=== PATIENT | female | born 2000 | race Caucasian/White ===

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

== ENCOUNTER 2020-01-22 08:23 | Emergency (ER) | payer OTHER, SELFPAY ==
[2020-01-22 08:24] VITALS: BP 126/89; PULSE 124; RESP 16; O2SAT 96
[2020-01-22 08:31] VITALS: BP 126/89; PULSE 124; RESP 17; TEMP 38.2; O2SAT 98; BMI 18.9
--- NOTE | 2020-01-22 08:44 | HMH.EDFEV ---
ED Disposition Clinical Impression: Infected dental carries Disposition: Home, Self-Care Condition on Discharge: Fair Instructions: DI for Tooth Abscess Prescriptions: clindamycin HCL [Cleocin HCl] 450 mg PO TID #63 cap Prescription Printed Hydrocodone/Acetaminophen [[place] 5-325 Tablet] 1 each PO Q6 #7 tab Prescription Printed Referrals: Italo Taylor MD [Primary Care Provider] - Emergency [facility] [Other] Time of Disposition: 09:05 - Critical Care Critical Care Time: No Attestation: On 01/22/20, the high probability of a clinically significant, sudden or life threatening deterioration of the following system(s) required my full and direct attention, intervention and personal management. The time I documented below is in addition to time spent performing reported procedures but includes the following listed in this critical care notation. Medical Decision Making - Medical Records Medical records reviewed: Yes: I reviewed the patient's medical records. - Lucio Inquiry Pt receiving controlled substance: No Vital Signs: 01/22/20 08:31 Temperature 100.7 F H Temperature Source Oral Pulse Rate [Right Radial] 124 H Respiratory Rate 17 Blood Pressure [Right Arm] 126/89 Blood Pressure Mean [Right Arm] 101 02 Sat by Pulse Oximetry 98 Oxygen Delivery Method Room Air Orders (Tests/Meds): ED MEDICATIONS Generic Name Dose Route Start Last Admin Trade Name Freq PRN Reason Stop Dose Admin Sodium Chloride 1,000 mls @ 999 mls/hr 01/22/20 08:45 01/22/20 08:54 Sod Chlor 0.9% 1000ml Bag IV 01/22/20 09:45 999 mls/hr .Q1H1M EDU Administration Discontinued Medications Generic Name Dose Route Start Last Admin Trade Name Freq PRN Reason Stop Dose Admin Ketorolac Tromethamine 30 mg 01/22/20 08:42 01/22/20 08:53 Toradol 30mg/Ml Vial IV 01/22/20 08:43 30 mg ONCE ONE Administration - Reevaluation(s) Time: 08:55 Reevaluation #1: On reevaluation, patient is feeling better. I did give her instructions for the emergency dental clinic. Patient will require extraction. Patient discharged on short course antibiotics. Given strict return precautions. Verbalized understanding. Medical Decision Narrative: 19-year-old female presented to the emergency department with fevers, chills and dental pain. Patient is not evidence of infected dental caries on examination. Patient is low-grade fever in the emergency department. Denies any other symptoms. Patient will be provided analgesics and antipyretics. I did explain to the patient that she needs dental extraction. Fever HPI - General Chief Complaint: Fever Stated Complaint: fever 102 Time Seen by Provider: 01/22/20 08:44 Mode of Arrival: Ambulatory Limitations: No Limitations Description of Symptoms (Recalled from ER Triage Doc. by RN): pt presents to ed with c/o fever up to 102. pt also c/o toothache. pt states that she thinks her fever is coming from her teeth. - History of Present Illness HPI Narrative: 19-year-old female presented to the emergency department with dental pain, fevers and chills. The patient states that since early this morning, she has been having some swelling and discomfort in her right lower jaw. Patient has a history of infected dental caries. She is supposed to be seeing a dentist for extraction, however she has been unable to. Is been complaining of pain in the right lower molar. She is also had some mild discharge. Patient states that she did take some Tylenol in the middle the night, however her fever is not improved. She denies any headache, change in vision, neck pain or focal weakness. She is not having any chest pain, shortness of breath or cough. No abdominal pain, vomiting, no diarrhea or blood in the stool. Denies any other symptoms. - Related Data Previous Rx's Medication Instructions Recorded buspirone 5 mg tablet 5 mg PO TID #90 tab 11/17/19 paroxetine HCl 10 mg table
[2020-01-22 08:54] VITALS: BP 125/77; PULSE 87; RESP 16; TEMP 37.8; O2SAT 97
[2020-01-22 09:24] VITALS: BP 118/73; PULSE 104; RESP 18; O2SAT 99
[2020-01-22 09:30] VITALS: BP 118/73; PULSE 104; RESP 16; O2SAT 99
[2020-01-22 09:44] VITALS: BP 118/74; PULSE 100; RESP 14; TEMP 37.8; O2SAT 99
== END 2020-01-22 09:45 | disposition home or self-care (01) ==
PROVIDERS: Emergency Provider Emergency Medicine; PCP Emergency Medicine
DX: K02.9 Dental caries, unspecified (principal); K50.90 Crohn's disease, unspecified, without complications; F41.9 Anxiety disorder, unspecified; F17.210 Nicotine dependence, cigarettes, uncomplicated; Z90.09 Acquired absence of other part of head and neck
CPT/HCPCS: 96365; 96375; 99283

== ENCOUNTER 2020-09-20 14:09 | Emergency (ER) | payer OTHER, SELFPAY ==
--- NOTE | 2020-09-20 14:12 | HMH.EDGENADL ---
ED Disposition Referrals: Italo Taylor MD [Primary Care Provider] - Attestation: On , the high probability of a clinically significant, sudden or life threatening deterioration of the following system(s) required my full and direct attention, intervention and personal management. The time I documented below is in addition to time spent performing reported procedures but includes the following listed in this critical care notation. General Adult HPI - General Stated complaint: vomiting blood, [place] - Related Data Previous Rx's Medication Instructions Recorded clindamycin HCl 300 mg capsule 300 mg PO Q8H 10 Days #30 cap 03/23/20 Allergies Allergy/AdvReac Type Severity Reaction Status Date / Time amoxicillin Allergy Unknown Verified 03/23/20 14:30 allergy reaction Penicillins Allergy Unknown Verified 03/23/20 14:30 allergy reaction [facility] History - Hepatitis A Screen Attestation statement:: This patient has been screened for Hepatitis A risk factors. Medical History: Denies:: Cancer, Diabetes Mellitus Type 1, Diabetes Mellitus Type 2, MRSA Other Medical History: Reports: Other Comment: Chrohn's disease Laterality Cases: Bilateral: Tonsillectomy Other Surgeries: Yes: Other Amputation: No Fractures: No Comment: 2008-Tonsillectomy. 2017- colonoscopy and endoscopy - Social History Smoking Status: Current every day smoker Tobacco Type: cigarettes # Packs/Day (cigarettes): 1 Alcohol Intake: never Alcohol Intake Frequency:: holidays/special occasions only Substance Use Type: marijuana Occupational Status: unemployed Household Members: family Family Hx:: Hypertension
--- NOTE | 2020-09-20 15:19 | PC.NURSE ---
called registration to assign pt to a room, registration staff informs us pt has left. notified ROSE ARCE
[2020-09-20 15:20] VITALS: BP 0/0; PULSE 0; RESP 0; TEMP -17.7; TEMP 0; O2SAT 0
== END 2020-09-20 15:20 | disposition left against medical advice (07) ==
LOC: ER 15:15
PROVIDERS: Emergency Provider Emergency Medicine; PCP Emergency Medicine
DX: Z53.21 Procedure and treatment not carried out due to patient leaving prior to being seen by health care provider (principal)
CPT/HCPCS: 99211

== ENCOUNTER 2020-11-13 16:39 | Emergency (ER) | payer OTHER, SELFPAY ==
[2020-11-13 16:39] VITALS: BP 108/70; PULSE 92; RESP 18; TEMP 36.7; O2SAT 97; BMI 22.1
--- NOTE | 2020-11-13 16:59 | XR_ITS ---
PROCEDURE INFORMATION: Exam: XR Chest Exam date and time: 11/13/2020 4:59 PM Age: 19 years old Clinical indication: Sternal or substernal pain; Patient HX: Chest pain TECHNIQUE: Imaging protocol: XR of the chest. Views: 2 views. COMPARISON: No relevant prior studies available. FINDINGS: Airway: The airways are patent. Lungs: Subtle bilateral and symmetric hazy opacifications in the lung bases are most compatible with superimposition of soft tissues, most likely breast tissue. These opacifications are not visualized on the lateral view. The lungs are otherwise clear. Pleural spaces: There are no pleural effusions present. There is no evidence of pneumothorax. Heart/Mediastinum: Heart is of normal size and morphology. Bones/joints: No acute skeletal abnormality or aggressive osseous lesion. IMPRESSION: Negative for acute thoracic pathology.
[2020-11-13 17:08] LABS: Basophils % 0.5 % (0.1-2.0); Eosinophils # 0.1 K/mm3 (0.0-0.4); Eosinophils % 1.1 % (0.1-12.0); Hematocrit 44.4 % (37.0-47.0); Hemoglobin 14.7 g/dL (12.2-16.2); Lymphocytes # 2.6 K/mm3 (0.7-4.5); Lymphocytes % 31.8 % (10-50); Mean Corpuscular HGB Conc 33.2 g/dL (31.8-35.4); Mean Corpuscular Hemoglobin 31.6 pg (27.0-31.2); Mean Corpuscular Volume 95.2 fl (81-99); Mean Platelet Volume 6.6 fl (7.4-10.4); Monocytes # 0.3 K/mm3 (0.1-1.0); Monocytes % 3.8 % (1.7-9.3); Neutrophils # 5.1 K/mm3 (1.8-7.8); Neutrophils % 62.7 % (37.0-80.0); Platelet Count 314 K/mm3 (142-424); Red Blood Count 4.67 M/mm3 (4.20-5.40); Red Cell Distribution Width 12.8 % (11.5-17.5); White Blood Count 8.2 K/mm3 (4.5-13.0)
[2020-11-13 17:10] LABS: Chloride 104 mmol/L (98-107); Potassium 3.7 mmoL/L (3.5-5.1); Sodium 139 mmol/L (136-145)
--- NOTE | 2020-11-13 17:11 | HMH.EDOD ---
ED Disposition Clinical Impression: Drug overdose Qualifiers: Encounter type: initial encounter Injury intent: accidental or unintentional Qualified Code(s): T50.901A - Poisoning by unspecified drugs, medicaments and biological substances, accidental (unintentional), initial encounter Disposition: Home, Self-Care Condition on Discharge: Good Instructions: DI for Drug Overdose in Adults Referrals: Provider,Referral, [Referring] - - Critical Care Critical Care Time: No Attestation: On 11/13/20, the high probability of a clinically significant, sudden or life threatening deterioration of the following system(s) required my full and direct attention, intervention and personal management. The time I documented below is in addition to time spent performing reported procedures but includes the following listed in this critical care notation. Medical Decision Making - Medical Records Medical records reviewed: Yes: I reviewed the patient's medical records. - Lucio Inquiry Pt receiving controlled substance: No Vital Signs: 11/13/20 16:39 Temperature 98.0 F Temperature Source Oral Pulse Rate [Right] 92 H Respiratory Rate 18 Blood Pressure [Right Arm] 108/70 L Blood Pressure Mean [Right Arm] 82 02 Sat by Pulse Oximetry 97 Oxygen Delivery Method Room Air - Lab Data Lab Results 11/13/20 16:49: WBC 8.2, RBC 4.67, Hgb 14.7, Hct 44.4, MCV 95.2, MCH 31.6 H, MCHC 33.2, RDW 12.8, Plt Count 314, MPV 6.6 L, Neut % (Auto) 62.7, Lymph % (Auto) 31.8, [place] % (Auto) 3.8, Eos % (Auto) 1.1, Baso % (Auto) 0.5, Neut # (Auto) 5.1, Lymph # (Auto) 2.6, [place] # (Auto) 0.3, Eos # (Auto) 0.1, Baso # (Auto) 0.0 11/13/20 16:49: Sodium 139, Potassium 3.7, Chloride 104, Carbon Dioxide 25, Anion Gap 13.7, BUN 7, Creatinine 0.60, Estimated Creat Clear 134, Estimated GFR 127, Est GFR ( Amer) 154, Glucose 210 H, Calcium 8.9, Total Bilirubin 0.7, AST 135 H, ALT 104 H, Alkaline Phosphatase 74, Troponin I < 0.01, Total Protein 7.9, Albumin 4.7, Globulin 3.2, Albumin/Globulin Ratio 1.5 Result diagrams: 11/13/20 16:49 11/13/20 16:49 Orders (Tests/Meds): ED MEDICATIONS Generic Name Dose Route Start Last Admin Trade Name Freq PRN Reason Stop Dose Admin Sodium Chloride 1,000 mls @ 999 mls/hr 11/13/20 17:00 11/13/20 17:15 Sod Chlor 0.9% 1000ml Bag IV 11/13/20 18:00 999 mls/hr .Q1H1M EDU Administration Discontinued Medications Generic Name Dose Route Start Last Admin Trade Name Freq PRN Reason Stop Dose Admin Ondansetron HCl 4 mg 11/13/20 16:59 11/13/20 17:07 Ondansetron 4mg/2ml Vial IV 11/13/20 17:00 4 mg ONCE ONE Administration ORDERS Category Date Time Status XR chest 2V Stat Exams 11/13/20 16:59 Taken Troponin I Q3H Lab 11/13/20 20:00 Ordered Troponin I Q3H Lab 11/13/20 23:00 Ordered - Radiology Data #1 Image(s): Chest Image Reviewed: Yes I reviewed the patient's radiology results, Yes I reviewed the patient's radiology image Preliminary Findings: Normal/NAD - Reevaluation(s) Time: 17:50 Reevaluation #1: On reevaluation, patient is feeling better. She is alert and appropriate. I did offer rehabilitation services, however patient is declining at this time. She will be discharged on the care of her friend. Patient was given strict return precautions. Verbalized understanding. Medical Decision Narrative: 19-year-old female presenting after opiate overdose. Patient is alert and appropriate at this time. Complaining of some chest discomfort. Likely secondary to CPR that was started by the boyfriend. Work-up initiated. Overdose HPI - General Chief Complaint: Overdose Stated Complaint: Overdose Time Seen by Provider: 11/13/20 16:45 Mode of Arrival: EMS Limitations: No Limitations Description of Symptoms (Recalled from ER Triage Doc. by RN): EMS REPORTS THEY WERE CALLED OUT FOR AN UNRESPONSIVE PATIENT WITH POSSIBLE OVERDOSE. EMS REPORTS UPON ARRIVAL, PATIENT WAS UNRESPO
[2020-11-13 17:13] LABS: Alanine Aminotransferase 104 U/L (12-78); Albumin Level 4.7 g/dl (3.5-5.0); Albumin/Globulin Ratio 1.5 (1.1-1.8); Alkaline Phosphatase 74 U/L (38-126); Anion Gap 13.7 mEq/L (5-15); Aspartate Amino Transferase 135 U/L (14-36); Bilirubin,Total 0.7 mg/dl (0.2-1.3); Blood Urea Nitrogen 7 mg/dl (7-17); Carbon Dioxide 25 mmol/L (22.0-30.0); Creatinine Clearance Estimated 134 mL/min (50-200); Estimated Glomerular Filt Rate 127 ml/min (>60); GFR (African American) 154 ML/MIN (>60); Globulin 3.2 g/dL (1.3-3.2); Total Protein,Serum 7.9 g/dl (6.3-8.2)
[2020-11-13 17:14] LABS: Calcium 8.9 mg/dl (8.4-10.2); Glucose 210 mg/dl (74-100)
[2020-11-13 17:25] LABS: Troponin I < 0.01 ng/ml (0.00-0.034)
[2020-11-13 17:30] VITALS: BP 102/62; PULSE 95; O2SAT 95
[2020-11-13 18:00] VITALS: BP 106/63; PULSE 73; PULSE 86; RESP 16; TEMP 36.7; O2SAT 97; O2SAT 98
--- NOTE | 2020-11-13 18:03 | PC.NURSE ---
CALLED PATIENT BOYFRIENDETHEL PER PATIENT REQUEST. ETHEL STATED HE WAS ON HIS WAY TO PICK PATIENT UP. PATIENT WILL REMIAN IN ER BED UNTIL RIDE ARRIVES
== END 2020-11-13 18:19 | disposition home or self-care (01) ==
PROVIDERS: Emergency Provider Emergency Medicine; PCP Emergency Medicine
DX: T40.1X1A Poisoning by heroin, accidental (unintentional), initial encounter (principal); Y92.019 Unspecified place in single-family (private) house as the place of occurrence of the external cause; F17.210 Nicotine dependence, cigarettes, uncomplicated; Z88.0 Allergy status to penicillin
CPT/HCPCS: 71046; 80053; 84484; 85025; 96365; 99282; J2405

== ENCOUNTER 2021-07-06 11:07 | Emergency (ER) | payer OTHER, SELFPAY ==
[2021-07-06 11:11] VITALS: BP 124/76; PULSE 84; RESP 16; TEMP 36.4; O2SAT 98; BMI 23.9
--- NOTE | 2021-07-06 11:46 | HMH.EDGENADL ---
ED Disposition Clinical Impression: Infected dental caries Disposition: Home, Self-Care Condition on Discharge: Good Instructions: DI for Dental Pain, DI for Tooth Decay, DI for Tooth Abscess Additional Instructions: Clindamycin as prescribed. Toradol as needed for pain. Additional instructions for DENTAL PROBLEMS: See a dentist as soon as possible for further evaluation. Return immediately if you have an uncontrollable fever greater than 102 degrees, difficulty breathing or shortness of breath, persistent vomiting, or inability to swallow. Prescriptions: Ketorolac Tromethamine [Toradol 10mg tablet] 10 mg PO Q6HP PRN #10 tablet PRN Reason: Moderate Pain clindamycin HCL [Clindamycin HCl] 300 mg PO QID #28 capsule Referrals: Italo Taylor MD [Primary Care Provider] - - Critical Care Critical Care Time: No Attestation: On 07/06/21, the high probability of a clinically significant, sudden or life threatening deterioration of the following system(s) required my full and direct attention, intervention and personal management. The time I documented below is in addition to time spent performing reported procedures but includes the following listed in this critical care notation. Medical Decision Making - Lucio Inquiry Pt receiving controlled substance: No Vital Signs: 07/06/21 11:11 Temperature 97.6 F Temperature Source Oral Pulse Rate [Right Radial] 84 Respiratory Rate 16 Blood Pressure [Right Arm] 124/76 Blood Pressure Mean [Right Arm] 92 Blood Pressure Source [Right Arm] Automatic Cuff Blood Pressure Position [Right Arm] Sitting 02 Sat by Pulse Oximetry 98 Oxygen Delivery Method Room Air General Adult HPI - General Chief complaint: Dental/Oral Stated complaint: oral pain, lt eye swelling Time Seen by Provider: 07/06/21 11:46 Mode of Arrival: Ambulatory Limitations: No Limitations Description of Symptoms (Recalled from ER Triage Doc. by RN): Pt reports L front area dental pain, pt reports pain began yesterday, states woke up this morning she woke up with facial swelling on L side of face up to her L eye this morning. Pt L front tooth is broken off, states that has been like that for approx 3 months. pt denies fevers. - History of Present Illness HPI narrative: Complains of a toothache, facial swelling and facial pain. States that all of my teeth are broken off . Started having pain in her left central maxillary incisor a few days ago and now has swelling of the left side of her face: Lip, nose, infraorbital area. No fever. Her dentist is Dr. Rodriguez. She last saw him about 6 months ago. She is taking ibuprofen for her pain without relief, states that she cannot receive any prescriptions for controlled substances. - Related Data Previous Rx's Medication Instructions Recorded clindamycin HCl 300 mg capsule 300 mg PO Q8H 10 Days #30 cap 03/23/20 Ketorolac Tromethamine [Toradol 10 mg PO Q6HP PRN #10 tab 07/06/21 10mg tablet] clindamycin HCL [Clindamycin HCl] 300 mg PO QID #28 cap 07/06/21 Allergies Allergy/AdvReac Type Severity Reaction Status Date / Time amoxicillin Allergy Unknown Verified 03/23/20 14:30 allergy reaction Penicillins Allergy Unknown Verified 03/23/20 14:30 allergy reaction [facility] History - Hepatitis A Screen Drug use history?: No High risk sexual behaviors?: No History of sexually transmitted infection?: No Currently employed?: No Childcare worker?: No Do you have indoor plumbing?: Yes Do you have electricity?: Yes Attestation statement:: This patient has been screened for Hepatitis A risk factors. I have reviewed the patient's past medical history: Yes Medical History: Denies:: Cancer, Diabetes Mellitus Type 1, Diabetes Mellitus Type 2, MRSA Other Medical History: Reports: Other Comment: Chrohn's disease Laterality Cases: Bilateral: Tonsillectomy Other Surgeries: Yes: Other Amputation: No Fractures: No Comme
[2021-07-06 12:07] VITALS: BP 124/76; PULSE 84; RESP 16; TEMP 36.4; O2SAT 98
== END 2021-07-06 12:09 | disposition home or self-care (01) ==
PROVIDERS: Emergency Provider Emergency Medicine; PCP Emergency Medicine
DX: K02.9 Dental caries, unspecified (principal); F17.210 Nicotine dependence, cigarettes, uncomplicated; K50.90 Crohn's disease, unspecified, without complications
CPT/HCPCS: 96365; 96372; 99281

== ENCOUNTER 2023-12-13 13:40 | Emergency (ER) | payer OTHER, SELFPAY ==
[2023-12-13 13:50] VITALS: BP 133/71; PULSE 109; RESP 20; TEMP 37.3; O2SAT 97; BMI 19.5
--- NOTE | 2023-12-13 14:34 | EXP.UTC ---
Discharge Plan Disposition Patient Disposition: Home, Self-Care Condition: Good Prescriptions Prescriptions: New clindamycin HCl 300 mg capsule 300 mg PO TID Qty: 30 0RF mupirocin 2 % ointment 1 applic topical TID 10 Days Qty: 22 0RF Referrals Follow up/Referrals: Kayden Gudino DO [Primary Care Provider] - See instructions Activity Restrictions/Add. Instructions Additional Instructions/Restrictions: Take medication as prescribed Follow up with your Family Doctor and dentist Salt water gargles may help with clearing of infection Return if needed Clinical Impressions Clinical Impression: Dental infection Instructions Patient Instructions: DI for Tooth Abscess, Clindamycin Discharge ED Provider: Maria M Ward Sohail [facility] HPI General Stated complaint: side pain, itching Mode of Arrival: Ambulatory Source of Information: Patient Limitations: No Limitations Time Seen by Provider: 12/13/23 14:34 Description of Symptoms (Recalled from Triage Doc. by RN): PATIENT C/O ABSCESSED TOOTH TO TOP LEFT SIDE OF MOUTH AND RIGHT SIDE PAIN HEENT Symptoms (Recalled from RN notes): Yes Resp Symptoms (Recalled from RN notes): No Skin Symptoms (Recalled from RN notes): No MS Symptoms (Recalled from RN notes): No Functional Status (Recalled from RN notes): WNL History of Present Illness Provider Complaint: Patient states that she has been having pain and swelling in her left gums where she has several broken and decaying teeth and having swelling to left gum area states that she also has a couple small sore like areas on her right side and left forearm that she was worried about and wanted checked Related Data Previous Rx's Medication Instructions Recorded clindamycin HCl 300 mg capsule 300 mg PO TID #30 caps 12/13/23 mupirocin 2 % topical ointment 1 applic topical TID 10 days #22 12/13/23 grams Allergies Allergy/AdvReac Type Severity Reaction Status Date / Time amoxicillin Allergy Unknown Verified 03/23/20 14:30 allergy reaction Penicillins Allergy Unknown Verified 03/23/20 14:30 allergy reaction Worker's Comp Is this a Worker's Comp case?: No [facility] Disclaimer: The information contained in this section may have been updated after the patient was seen, as this information can be updated by other users. Medical History (Updated 12/13/23 @ 15:00 by Maria M Ward APRN) Depression Anxiety Crohn's disease Surgical History (Updated 12/13/23 @ 14:13 by Breanna Encinas RN) History of tonsillectomy Social History Smoking Status: Current every day smoker tobacco type: cigarettes packs per day: 1 second hand exposure: No alcohol intake: never substance use type: marijuana current occupational status: unemployed Travel in the last 8 weeks: None household members: family caffeine: No ROS Obtained: Yes All systems reviewed & no additional complaints except as documented and Yes Systems reviewed as appropriate & no additional complaints except as documented Constitutional Constitutional: Reports system reviewed and no additional complaints, except as documented and Reports as per HPI ENT Ears, Nose, Mouth, and Throat: Reports system reviewed and no additional complaints, except as documented, Reports as per HPI and Reports dental pain Cardiovascular Cardiovascular: Reports system reviewed and no additional complaints, except as documented and Reports as per HPI Respiratory Respiratory: Reports system reviewed and no additional complaints, except as documented and Reports as per HPI Gastrointestinal Gastrointestingal: Reports system reviewed and no additional complaints, except as documented and as per HPI Integumentary/Breasts Skin/Breast: Reports system reviewed and no additional complaints, except as documented, Reports as per HPI and Reports other (small sore like areas noted on right side and arm) Physical Exam General General appearance: alert and in no apparent distress ENT ENT exam: Present mucous membranes moist Expanded ENT Exam Teeth exam: Present dental caries, dental tenderness # and gingival swelling (redness and swelling to left gum) Respiratory Respiratory exam: Present normal lung sounds bilaterally; Absent respiratory distress or wheezes Cardiovascular Cardiovascular exam: Present regular rate, normal rhythm and normal heart sounds Abdominal Exam Abdominal exam: Present soft and normal bowel sounds; Absent distention or tenderness Neurological Exam Neurological exam: Present alert and normal gait Skin Skin exam: Present other (several small sore like areas on right side and on arm) Medical Decision Making Lucio Inquiry Pt receiving controlled substance: No Lucio was queried for this patient: No Vital Signs: 12/13/23 13:50 Temperature 99.1 F Temperature Source Oral Pulse Rate [Left Brachial] 109 H Respiratory Rate 20 Blood Pressure [Left Arm] 133/71 Blood Pressure Mean [Left Arm] 91 Blood Pressure Source [Left Arm] Automatic Cuff Blood Pressure Position [Left Arm] Sitting 02 Sat by Pulse Oximetry 97 Oxygen Delivery Method Room Air Medical Decision Narrative: Medication dosed per pharmacy
[2023-12-13 15:03] VITALS: BP 133/71; PULSE 109; RESP 20; TEMP 37.3; O2SAT 97
== END 2023-12-13 15:05 | disposition home or self-care (01) ==
PROVIDERS: Emergency Provider Nurse Practitioner; PCP Internal Medicine
DX: K04.7 Periapical abscess without sinus (principal); L98.9 Disorder of the skin and subcutaneous tissue, unspecified
CPT/HCPCS: 99204; 99212; G0463

== ENCOUNTER 2024-03-31 12:43 | Emergency (ER) | payer OTHER, SELFPAY ==
[2024-03-31 13:00] VITALS: BP 117/71; PULSE 78; RESP 20; TEMP 36.6; O2SAT 99; BMI 22.1
--- NOTE | 2024-03-31 13:05 | EXP.UTC ---
Discharge Plan Disposition Patient Disposition: Home, Self-Care Condition: Good Prescriptions Prescriptions: New clindamycin HCl 300 mg capsule 300 mg PO Q8H Qty: 30 0RF Referrals Follow up/Referrals: Provider,Referral, [Primary Care Provider] - See instructions Activity Restrictions/Add. Instructions Additional Instructions/Restrictions: Take tylenol for pain. Take the clindamycin as directed. Follow up with your regular doctor. Follow up with your configuration consultant physician. Follow up with your dentist. GO TO THE ER FOR ANY WORSENING SYMPTOMS Clinical Impressions Clinical Impression: Dental abscess, Pain, dental, Jaw pain, Instructions Patient Instructions: DI for Tooth Abscess, Clindamycin Print Language Print Language: Russian Discharge ED Provider: Rl Mcintosh [facility] [place] General Stated complaint: tooth ache Time Seen by Provider: 03/31/24 13:05 Related Data Previous Rx's ?Medication ?Instructions ?Recorded clindamycin HCl 300 mg capsule 300 mg PO Q8H #30 caps 03/31/24 Allergies Allergy/AdvReac Type Severity Reaction Status Date / Time amoxicillin Allergy Unknown Verified 03/23/20 14:30 allergy reaction Penicillins Allergy Unknown Verified 03/23/20 14:30 [facility] Disclaimer: The information contained in this section may have been updated after the patient was seen, as this information can be updated by other users. Medical History (Updated 03/31/24 @ 13:16 by Rl Mcintosh APRN) Depression Anxiety Crohn's disease Surgical History (Updated 12/13/23 @ 14:13 by Breanna Encinas RN) History of tonsillectomy Social History Smoking Status: Current every day smoker tobacco type: cigarettes packs per day: 1 second hand exposure: No alcohol intake: never substance use type: marijuana current occupational status: unemployed Travel in the last 8 weeks: None household members: family caffeine: No ROS Obtained: Yes All systems reviewed & no additional complaints except as documented Constitutional Constitutional: Denies chills and Denies fever(s) Eyes Eyes: Denies eye discharge ENT Ears, Nose, Mouth, and Throat: Reports as per HPI, Denies dizziness, Denies otalgia and Denies sore throat Cardiovascular Cardiovascular: Denies chest pain Respiratory Respiratory: Denies shortness of breath, Denies chest congestion, Denies cough, Denies stridor and Denies wheezing Gastrointestinal Gastrointestingal: Denies nausea or vomiting Musculoskeletal Musculoskeletal: Reports system reviewed and no additional complaints, except as documented and Denies arthralgias Integumentary/Breasts Skin/Breast: Denies rash Neurologic Neurologic: Denies dizziness and Denies paresthesias Allergic/Immunologic Allergic/Immunologic: Denies wheezing Physical Exam General General appearance: alert and in no apparent distress Head Head exam: atraumatic, normocephalic and normal inspection Eye Eye exam: Present normal appearance, PERRL and EOMI ENT ENT exam: Present mucous membranes moist, TM's normal bilaterally and normal external ear exam Expanded ENT Exam Nose exam: Absent sinus tenderness Nasal speculum exam: Bilateral: normal Mouth exam: Present normal external inspection; Absent drooling Teeth exam: Present dental caries, fractured tooth #, dental tenderness # and gingival swelling Throat exam: Present normal inspection Neck Neck exam: Present normal inspection, full ROM and trachea midline; Absent meningismus or lymphadenopathy Chest Chest inspection: Present normal inspection and symmetric chest wall rise; Absent tenderness Respiratory Respiratory exam: Present normal lung sounds bilaterally; Absent respiratory distress Cardiovascular Cardiovascular exam: Present regular rate and normal rhythm; Absent JVD Abdominal Exam Abdominal exam: Present soft and normal bowel sounds; Absent distention, tenderness or guarding Extremities Exam Extremities exam: Present normal inspection, full ROM and normal capillary refill; Absent calf tenderness Back Exam Back exam: Present normal inspection; Absent tenderness Neurological Exam Neurological exam: Present alert and oriented X3 Psychiatric Psychiatric exam: Present normal affect and normal mood Skin Skin exam: Present warm, dry, intact and normal color Lymphatic Lymphatic Findings: no adenopathy Medical Decision Making Medical Records Medical records reviewed: No I reviewed the patient's medical records. Screening: Per USPSTF and CDC recommendations, given the prevalence of disease in our region, it is our hospital?s policy to screen for HIV and viral Hepatitis for all patients aged 18 and over and those with ongoing risk factors. Lucio Inquiry Pt receiving controlled substance: No
[2024-03-31 13:16] VITALS: BP 117/71; PULSE 78; RESP 20; TEMP 36.6; O2SAT 99
== END 2024-03-31 13:19 | disposition home or self-care (01) ==
PROVIDERS: Emergency Provider Nurse Practitioner Family
DX: K04.7 Periapical abscess without sinus (principal)
CPT/HCPCS: 99213; G0381